=== PATIENT | male | born 1955 | race Caucasian/White ===

== ENCOUNTER 2019-02-18 23:37 | Emergency (ER) | payer OTHER ==
[~2019-02-18] VITALS: Ht 182.9 cm; Wt 74.8 kg
[~2019-02-18 23:37] MED LIST: COLCHICINE 0.60.6 M1 PO; NOHOMEMEDICATIONS; NORCO 5-325 TA1 EACH PO
[2019-02-19 00:06] LABS: ABSOLUTE NEUTROPHILS 4.3 thou/uL (1.4-8.2); BASOPHILS 0.3 % (0.0-2.0); EOSINOPHILS 1.9 % (0.0-3.0); HEMATOCRIT 48.4 % (42.0-52.0); HEMOGLOBIN 16.1 gm/dL (14.0-18.0); LYMPHOCYTES 45.1 % (24.0-44.0); MCH 29.9 pg (26.0-34.0); MCHC 33.2 g/dL (28.0-37.0); MCV 90.2 fL (80.0-100.0); MONOCYTES 5.9 % (1.0-8.0); PLATELET COUNT 236 thou/uL (150-400); POLYS 46.8 % (36.0-66.0); RBC 5.37 mil/uL (4.50-6.00); RDW 13.9 % (10.5-14.5); WBC 9.2 thou/uL (4.0-11.0)
[2019-02-19 00:13] LABS: ANION GAP 10 mmol/L (7-16); BUN 22 mg/dL (7-18); CALCIUM 9.5 mg/dL (8.5-10.1); CHLORIDE 108 mmol/L (98-107); CO2 26 mmol/L (21-32); CREATININE 1.3 mg/dL (0.7-1.3); GLUCOSE 123 mg/dL (74-106); POTASSIUM 3.6 mmol/L (3.5-5.1); SODIUM 144 mmol/L (136-145)
[2019-02-19 00:21] LABS: TROPONIN-I <0.06 ng/mL (<0.06)
[2019-02-19 02:01] VITALS: BP 119/77
[2019-02-19] MEDS ORDERED: PREDNISONE 20 M20 MG PO (02:06)
[2019-02-19] MEDS ORDERED: DIPHENHIST50 MG PO (02:06)
[2019-02-19] MEDS ORDERED: EPIPEN 2-P0.3 MG/0.3 IM (02:06)
--- NOTE | 2019-02-19 13:28 | EKG ---
[place] [id number] [facility] [employer] [address] ELECTROCARDIOGRAM REPORT Name: JEY BRUCE Room #: [facility]P [facility] [id number] Admission: 02/18/19 Attend Phys: Discharge: 02/19/19 Date of : 53 Report #: [id number] THIS REPORT FOR: //name// [facility] ED Test Date: 2019-02-19 Test Time: 00:38:49 Pat Name: JEY BRUCE Department: Room: Gender: Service Station Console Operator: yudith : 1955 Requested By: Rodo Johns Order Number: [id number] MD: Jere Vale Measurements Intervals [place] Rate: 82 P: 53 MS: 176 QRS: -59 QRSD: 108 T: 74 QT: 397 QTc: 464 Interpretive Statements Sinus rhythm Left anterior fascicular block RSR' in V1 or V2, right VCD No previous ECG available for comparison Electronically Signed On 02-19-2019 13:28:17 CDT by Jere Vale [email or web address] <ELECTRONICALLY SIGNED> By: Jere Vale MD, [facility] 02/19/19 1328 0038 Jere Vale MD, FACC /EPI
== END 2019-02-19 03:16 | disposition home or self-care (01) ==
LOC: ER 23:37
PROVIDERS: Emergency Medicine
DX: T78.00XA Anaphylactic reaction due to unspecified food, initial encounter (principal); L50.9 Urticaria, unspecified; M10.9 Gout, unspecified; X58.XXXA Exposure to other specified factors, initial encounter